=== PATIENT | male | born 1975 | race Caucasian/White ===

== ENCOUNTER 2017-11-13 21:28 | Emergency (ER) | payer SELFPAY ==
[~2017-11-13] VITALS: Ht 182.9 cm; Wt 95.0 kg
[2017-11-13 21:30] VITALS: BP 105/46
[2017-11-13] MEDS ORDERED: PROPARACAINE OPHTH 0.5%, 15ML EACHEYE ONE (22:00)
[2017-11-13] MEDS ORDERED: FLUORESCEIN OPHTHALMIC 1 MG STRIP EACHEYE ONE (22:00)
[2017-11-13] MEDS ORDERED: CEPHALEXIN 500 MG CAPSULE ONE (22:52)
[2017-11-13] MEDS ORDERED: CEPHALEXIN 500 MG CAPSULE PO ONE (23:00)
== END 2017-11-13 23:33 | disposition home or self-care (01) ==
LOC: ED 22:27
DX: T15.11XA Foreign body in conjunctival sac, right eye, initial encounter (principal); H10.211 Acute toxic conjunctivitis, right eye; F15.10 Other stimulant abuse, uncomplicated; X58.XXXA Exposure to other specified factors, initial encounter; Y93.89 Activity, other specified; Y92.89 Other specified places as the place of occurrence of the external cause; Y99.8 Other external cause status
CPT/HCPCS: 99283

== ENCOUNTER 2021-01-16 18:20 | Emergency (ER) | payer MEDICAID ==
[~2021-01-16] VITALS: Ht 182.9 cm; Wt 102.1 kg
[2021-01-16 19:33] LABS: ALBUMIN 3.3 g/dL (3.4-5.0); ANION GAP 3 mmol/L (5-15); CALCIUM 8.8 mg/dL (8.5-10.1); CHLORIDE 109 mmol/L (98-107); CREATININE 1.44 mg/dL (0.7-1.3)
[2021-01-16 19:36] LABS: TROPONIN I < 0.015 ng/mL (0.000-0.045)
[2021-01-16 19:58] LABS: BASOPHILS % (AUTO) 1 % (0-1); EOSINOPHILS % (AUTO) 4 % (1-7); LYMPHOCYTES % (AUTO) 41 % (22-44); MEAN CORPUSCULAR HEMOGLOBIN 32.3 pg (27.5-34.5); MEAN CORPUSCULAR HGB CONC 34.2 g/dL (33.2-36.2); MEAN PLATELET VOLUME 8.5 fL (7.4-10.4); MONOCYTES % (AUTO) 12 % (2-9); NEUTROPHILS % (AUTO) 42 % (42-75); PLATELET COUNT 228 x10^3/uL (130-400); RED CELL DISTRIBUTION WIDTH 13.4 % (9.4-14.8)
[2021-01-16 20:19] VITALS: BP 114/83
== END 2021-01-16 21:04 | disposition home or self-care (01) ==
LOC: ED 19:45
DX: N18.2 Chronic kidney disease, stage 2 (mild) (principal); Z20.822 Contact with and (suspected) exposure to COVID-19; J40 Bronchitis, not specified as acute or chronic; B34.9 Viral infection, unspecified; R00.0 Tachycardia, unspecified; F17.200 Nicotine dependence, unspecified, uncomplicated
CPT/HCPCS: 36415; 71045; 80048; 82040; 84484; 85025; 93005; 99285; U0003; U0005